=== PATIENT | male | born 1975 | race Caucasian/White ===

== ENCOUNTER → 2017-07-10 | Outpatient (CLI) | payer BC ==
[~2017-07-10] MED LIST: ASPI-621 PO; ATOR-2 PO; CLOP75TA52 PO; FURO20TA3 PO; GABA300C10 PO; METO25TA35 PO; OXYC5TAB3 PO; POTA10TA31 PO; TRAZ50TA18 PO
== END | disposition home or self-care (01) ==
LOC: RAD 16:21
PROVIDERS: ATTEND Family Medicine
DX: M54.5 Low back pain (principal)
CPT/HCPCS: 76770

== ENCOUNTER 2017-12-13 23:18 | Inpatient (IN) | payer BC, OTHER ==
[~2017-12-13] VITALS: Ht 180.3 cm; Wt 154.9 kg
[2017-12-14] MEDS ORDERED: SODIUM CHLORIDE FLUSH 10ML SYR IVF ONE (00:30)
[2017-12-14 00:36] LABS: BASOPHILS # (AUTO) 0.04 x10^3/uL (0-0.1); BASOPHILS % (AUTO) 0 % (0-1); EOSINOPHILS # (AUTO) 0.39 x10^3/uL (0-0.4); EOSINOPHILS % (AUTO) 3 % (1-7); LYMPHOCYTES # (AUTO) 1.59 x10^3/uL (1-3.4); LYMPHOCYTES % (AUTO) 12 % (22-44); MD NO; MEAN CORPUSCULAR HEMOGLOBIN 26.3 pg (27.5-34.5); MEAN CORPUSCULAR HGB CONC 32.9 g/dL (33.2-36.2); MEAN PLATELET VOLUME 8.4 fL (7.4-10.4); MONOCYTES # (AUTO) 0.91 x10^3/uL (0.2-0.8); MONOCYTES % (AUTO) 7 % (2-9); NEUTROPHILS # (AUTO) 10.17 x10^3/uL (1.8-6.8); NEUTROPHILS % (AUTO) 78 % (42-75); PLATELET COUNT 514 x10^3/uL (130-400); RED BLOOD COUNT 5.42 x10^6/uL (4.38-5.82); RED CELL DISTRIBUTION WIDTH 14.6 % (9.4-14.8)
[2017-12-14 00:37] LABS: HCT (SEDRATE) 40.6 % (39.2-51.8)
[2017-12-14 00:44] LABS: INTERNATIONAL NORMALIZED RATIO 1.01 (0.93-1.1); PROTHROMBIN TIME 10.4 Seconds (9.6-11.5)
[2017-12-14 00:52] LABS: ALBUMIN 2.3 g/dL (3.4-5.0); ANION GAP 8 mmol/L (5-15); CALCIUM 8.5 mg/dL (8.5-10.1); CHLORIDE 99 mmol/L (98-107)
[2017-12-14 00:59] LABS: ALANINE AMINOTRANSFERASE 25 U/L (12-78); ALKALINE PHOSPHATASE 108 U/L (45-117); BILIRUBIN,TOTAL 0.5 mg/dL (0.2-1.0); CREATININE 1.26 mg/dL (0.7-1.3); TOTAL PROTEIN 8.5 g/dL (6.4-8.2)
[2017-12-14] MEDS ORDERED: VANCOMYCIN PER PHARMACY MC PRN ×2 (01:00→02:00)
[2017-12-14] MEDS ORDERED: CEFTRIAXONE PMX 2GM/50ML 50 ML ONE (01:14)
[2017-12-14] MEDS ORDERED: CEFTRIAXONE PMX 2GM/50ML 50 ML IV ONE (01:20)
[2017-12-14] MEDS ORDERED: INSULIN REGULAR 100 UNITS/ML, 3ML VIAL SQ-INSULIN SCH (01:30)
[2017-12-14] MEDS ORDERED: VANCOMYCIN 2,500 MG in SODIUM CHLORIDE 0.9% 500 ML IV ONE (01:30)
[2017-12-14] MEDS ORDERED: PHARMACOKINETIC CONSULTATION MC ONE (01:30)
[2017-12-14] MEDS ORDERED: INSULIN REGULAR 100 UNITS/ML, 3ML VIAL ONE (01:39)
[2017-12-14 02:00] VITALS: BP 148/96
[2017-12-14] MEDS ORDERED: hydrALAzine 20 MG/ML, 1ML IVPush PRN (02:00)
[2017-12-14] MEDS ORDERED: POLYETHYLENE GLYCOL 17 GM PACKET PO PRN (02:00)
[2017-12-14] MEDS ORDERED: BISACODYL 10 MG SUPP PR PRN (02:00)
[2017-12-14] MEDS ORDERED: morphine SULFATE 10 MG/ML, 1ML IVPush PRN (02:00)
[2017-12-14] MEDS ORDERED: ONDANSETRON 2MG/ML, 2ML IVPush PRN (02:00)
[2017-12-14] MEDS ORDERED: OXYcodone IR 5MG TABLET PO PRN (02:00)
[2017-12-14] MEDS ORDERED: PROMETHAZINE 25 MG/ML, 1ML IM PRN (02:00)
[2017-12-14] MEDS ORDERED: ONDANSETRON ODT 4 MG PO PRN (02:00)
[2017-12-14 02:28] LABS: FREE T4 (FREE THYROXINE) 1.32 ng/dL (0.76-1.46); THYROID STIMULATING HORMONE 2.61 mIU/L (0.358-3.740)
[2017-12-14] MEDS ORDERED: PHARMACOKINETIC MONITORING MC PRN (02:30)
[2017-12-14] MEDS ORDERED: METF10003 PO (02:44)
[2017-12-14] MEDS: SODIUM CHLORIDE 0.9% 1,000 ML IV SCH (03:52)
[2017-12-14] MEDS: PIPERACILLIN/TAZO/PMX 3.375GM 50 ML IV SCH ×3 (03:53→18:48)
[2017-12-14 07:29] LABS: HEMOGLOBIN A1C 8.6 % (4.2-6.3)
[2017-12-14 07:55] VITALS: BP 152/100
[2017-12-14] MEDS: SENNA/DOCUSATE TABLET PO SCH (07:56)
[2017-12-14] MEDS ORDERED: TRAZODONE 50MG TABLET PO PRN (08:30)
[2017-12-14] MEDS ORDERED: FUROSEMIDE 20 MG TABLET PO SCH (09:00)
[2017-12-14] MEDS ORDERED: ASPIRIN 81 MG TABLET EC PO SCH (09:00)
[2017-12-14] MEDS ORDERED: POTASSIUM CHLORIDE 20 MEQ TAB.ER.PRT PO SCH (09:00)
[2017-12-14] MEDS: INSULIN LISPRO 100 UNITS/ML, PEN SQ-INSULIN SCH ×4 (09:08→21:39)
[2017-12-14] MEDS ORDERED: GADOBUTROL 15 MMOL/15 ML PFS ONE (12:17)
[2017-12-14] MEDS: GABAPENTIN 300 MG CAPSULE PO SCH ×3 (12:46→21:04)
[2017-12-14] MEDS: METOPROLOL TARTRATE 25 MG TABLET PO SCH ×2 (12:46→21:04)
[2017-12-14] MEDS: OXYcodone IR 5MG TABLET PO PRN (12:48)
[2017-12-14] MEDS ORDERED: MAGNESIUM SULFATE PMX 2GM/50ML 50 ML IV ONE (13:00)
[2017-12-14] MEDS ORDERED: FENTANYL PF 100 MCG/2ML ONE (13:45)
[2017-12-14] MEDS ORDERED: MIDAZOLAM 1 MG/ML, 2ML ONE (13:45)
[2017-12-14] MEDS ORDERED: LIDOCAINE-MPF 2% ,5ML ONE (14:24)
[2017-12-14] MEDS ORDERED: PROPOFOL 10 MG/ML, 20ML ONE (14:24)
[2017-12-14] MEDS ORDERED: ACETAMINOPHEN 650 MG/20.3 ML UDC ONE (15:23)
[2017-12-14] MEDS ORDERED: OXYcodone 5 MG/5 ML ORAL.SOL UDC ONE (15:23)
[2017-12-14] MEDS ORDERED: ACETAMINOPHEN 325 MG TABLET PO PRN (15:30)
[2017-12-14] MEDS ORDERED: FENTANYL PF 100 MCG/2ML IV PRN (15:30)
[2017-12-14] MEDS ORDERED: ALBUTEROL SULFATE 2.5 MG/3 ML NPPB PRN (15:30)
[2017-12-14] MEDS ORDERED: hydrALAzine 20 MG/ML, 1ML IV PRN (15:30)
[2017-12-14] MEDS ORDERED: LORazepam 2 MG/ML, 1ML IVPush PRN (15:30)
[2017-12-14] MEDS ORDERED: LABETALOL 5MG/ML, 20ML IV PRN (15:30)
[2017-12-14] MEDS ORDERED: HYDROmorphone 1 MG/ML, 1ML IV PRN (15:30)
[2017-12-14] MEDS ORDERED: ONDANSETRON ODT 8 MG PO PRN (15:30)
[2017-12-14] MEDS ORDERED: MORPHINE SULFATE 4 MG/ML, 1ML IVPush PRN (15:30)
[2017-12-14] MEDS ORDERED: PROMETHAZINE 25 MG/ML, 1ML IV PRN (15:30)
[2017-12-14] MEDS ORDERED: OXYcodone 5 MG/5 ML ORAL.SOL UDC PO PRN (15:30)
[2017-12-14] MEDS ORDERED: MEPERIDINE/PF 25MG/0.5ML IVPush PRN (15:30)
[2017-12-14 16:33] VITALS: BP 132/79
[2017-12-14 19:57] VITALS: BP 118/82
[2017-12-14] MEDS ORDERED: ATORVASTATIN 80 MG TABLET PO SCH (21:00)
[2017-12-14] MEDS: VANCOMYCIN 2,000 MG in SODIUM CHLORIDE 0.9% 500 ML IV SCH ×2 (21:04→22:02)
[2017-12-14 22:21] LABS: MICROSCOPIC INDICATED
[2017-12-14 22:28] LABS: CULTURE INDICATED? NO
[2017-12-15] MEDS: PIPERACILLIN/TAZO/PMX 3.375GM 50 ML IV SCH ×5 (00:44→20:14)
[2017-12-15 01:00] VITALS: BP 152/82
[2017-12-15] MEDS: SODIUM CHLORIDE 0.9% 1,000 ML IV SCH (03:18)
[2017-12-15 04:19] VITALS: BP 154/94
[2017-12-15 05:27] LABS: BASOPHILS # (AUTO) 0.06 x10^3/uL (0-0.1); BASOPHILS % (AUTO) 1 % (0-1); EOSINOPHILS # (AUTO) 0.56 x10^3/uL (0-0.4); EOSINOPHILS % (AUTO) 5 % (1-7); LYMPHOCYTES # (AUTO) 2.18 x10^3/uL (1-3.4); LYMPHOCYTES % (AUTO) 18 % (22-44); MD NO; MEAN CORPUSCULAR HEMOGLOBIN 26.2 pg (27.5-34.5); MEAN CORPUSCULAR HGB CONC 32.7 g/dL (33.2-36.2); MEAN PLATELET VOLUME 8.1 fL (7.4-10.4); MONOCYTES # (AUTO) 1.19 x10^3/uL (0.2-0.8); MONOCYTES % (AUTO) 10 % (2-9); NEUTROPHILS # (AUTO) 8.39 x10^3/uL (1.8-6.8); NEUTROPHILS % (AUTO) 68 % (42-75); PLATELET COUNT 475 x10^3/uL (130-400); RED CELL DISTRIBUTION WIDTH 14.5 % (9.4-14.8)
[2017-12-15 05:33] LABS: ALBUMIN 1.9 g/dL (3.4-5.0); ANION GAP 5 mmol/L (5-15); CALCIUM 7.6 mg/dL (8.5-10.1); CHLORIDE 102 mmol/L (98-107)
[2017-12-15 05:37] LABS: ALANINE AMINOTRANSFERASE 21 U/L (12-78); ALKALINE PHOSPHATASE 87 U/L (45-117); BILIRUBIN,TOTAL 0.4 mg/dL (0.2-1.0); CHOL/HDL RATIO 6.1; CHOLESTEROL, TOTAL 146 mg/dL (140-239); CREATININE 1.12 mg/dL (0.7-1.3); HDL CHOL % 16 % (26-37); HDL CHOLESTEROL (DIRECT) 24 mg/dL (40-60); LDL CHOLESTEROL,CALCULATED 95 mg/dL (54-169); TOTAL PROTEIN 7.4 g/dL (6.4-8.2); TRIGLYCERIDES 134 mg/dL (50-200); VLDL CHOLESTEROL 27 mg/dL (0-25)
[2017-12-15 08:06] VITALS: BP 131/85
[2017-12-15] MEDS: GABAPENTIN 300 MG CAPSULE PO SCH ×3 (08:13→20:14)
[2017-12-15] MEDS: SENNA/DOCUSATE TABLET PO SCH (08:13)
[2017-12-15] MEDS: INSULIN LISPRO 100 UNITS/ML, PEN SQ-INSULIN SCH ×4 (08:14→21:02)
[2017-12-15] MEDS: METOPROLOL TARTRATE 25 MG TABLET PO SCH ×2 (08:14→20:14)
[2017-12-15] MEDS: VANCOMYCIN 2,000 MG in SODIUM CHLORIDE 0.9% 500 ML IV SCH ×2 (10:37→22:36)
[2017-12-15] MEDS: OXYcodone IR 5MG TABLET PO PRN ×2 (11:47→21:05)
[2017-12-15] MEDS ORDERED: DIPHENHYDRAMINE 25 MG CAPSULE PO ONE (13:30)
[2017-12-15 14:32] VITALS: BP 148/72
[2017-12-15] MEDS: ENOXAPARIN 40 MG/0.4 ML SQ SCH (16:51)
[2017-12-15 20:30] VITALS: BP 146/90
[2017-12-16] MEDS: PIPERACILLIN/TAZO/PMX 3.375GM 50 ML IV SCH ×5 (02:21→21:20)
[2017-12-16] MEDS: OXYcodone IR 5MG TABLET PO PRN (02:26)
[2017-12-16 02:46] VITALS: BP 122/72
[2017-12-16 03:04] VITALS: BP 130/89
[2017-12-16 05:18] LABS: BASOPHILS # (AUTO) 0.09 x10^3/uL (0-0.1); BASOPHILS % (AUTO) 1 % (0-1); EOSINOPHILS # (AUTO) 0.73 x10^3/uL (0-0.4); EOSINOPHILS % (AUTO) 6 % (1-7); LYMPHOCYTES # (AUTO) 2.64 x10^3/uL (1-3.4); LYMPHOCYTES % (AUTO) 20 % (22-44); MD NO; MEAN CORPUSCULAR HEMOGLOBIN 26.3 pg (27.5-34.5); MEAN CORPUSCULAR VOLUME 79.8 fL (81-97); MEAN PLATELET VOLUME 7.9 fL (7.4-10.4); MONOCYTES # (AUTO) 1.16 x10^3/uL (0.2-0.8); MONOCYTES % (AUTO) 9 % (2-9); NEUTROPHILS # (AUTO) 8.67 x10^3/uL (1.8-6.8); NEUTROPHILS % (AUTO) 65 % (42-75); PLATELET COUNT 501 x10^3/uL (130-400); RED BLOOD COUNT 4.97 x10^6/uL (4.38-5.82); RED CELL DISTRIBUTION WIDTH 14.8 % (9.4-14.8)
[2017-12-16 05:22] LABS: CHLORIDE 104 mmol/L (98-107)
[2017-12-16 05:33] LABS: ANION GAP 4 mmol/L (5-15); CALCIUM 8.2 mg/dL (8.5-10.1); CREATININE 0.97 mg/dL (0.7-1.3)
[2017-12-16] MEDS: INSULIN LISPRO 100 UNITS/ML, PEN SQ-INSULIN SCH ×4 (06:05→21:21)
[2017-12-16 07:46] VITALS: BP 143/96
[2017-12-16] MEDS: METOPROLOL TARTRATE 25 MG TABLET PO SCH ×2 (07:56→21:20)
[2017-12-16] MEDS: GABAPENTIN 300 MG CAPSULE PO SCH ×3 (07:56→21:20)
[2017-12-16] MEDS: SENNA/DOCUSATE TABLET PO SCH (07:56)
[2017-12-16] MEDS: VANCOMYCIN 2,000 MG in SODIUM CHLORIDE 0.9% 500 ML IV SCH ×2 (10:36→23:04)
[2017-12-16 13:44] VITALS: BP 107/66
[2017-12-16] MEDS: ENOXAPARIN 40 MG/0.4 ML SQ SCH (16:22)
[2017-12-16 20:00] VITALS: BP 167/104
[2017-12-16 21:35] VITALS: BP 130/68
[2017-12-17] MEDS: PIPERACILLIN/TAZO/PMX 3.375GM 50 ML IV SCH ×4 (02:47→22:03)
[2017-12-17 03:04] VITALS: BP 158/90
[2017-12-17 05:26] LABS: CHLORIDE 104 mmol/L (98-107); HCT (SEDRATE) 39.7 % (39.2-51.8)
[2017-12-17 05:27] LABS: BASOPHILS # (AUTO) 0.05 x10^3/uL (0-0.1); BASOPHILS % (AUTO) 1 % (0-1); EOSINOPHILS # (AUTO) 0.77 x10^3/uL (0-0.4); EOSINOPHILS % (AUTO) 6 % (1-7); LYMPHOCYTES # (AUTO) 2.28 x10^3/uL (1-3.4); LYMPHOCYTES % (AUTO) 19 % (22-44); MD NO; MEAN CORPUSCULAR HEMOGLOBIN 26.2 pg (27.5-34.5); MEAN CORPUSCULAR HGB CONC 32.8 g/dL (33.2-36.2); MEAN CORPUSCULAR VOLUME 79.9 fL (81-97); MEAN PLATELET VOLUME 7.8 fL (7.4-10.4); MONOCYTES # (AUTO) 0.83 x10^3/uL (0.2-0.8); MONOCYTES % (AUTO) 7 % (2-9); NEUTROPHILS # (AUTO) 8.06 x10^3/uL (1.8-6.8); NEUTROPHILS % (AUTO) 67 % (42-75); PLATELET COUNT 505 x10^3/uL (130-400); RED BLOOD COUNT 4.93 x10^6/uL (4.38-5.82); RED CELL DISTRIBUTION WIDTH 14.3 % (9.4-14.8)
[2017-12-17 05:45] LABS: ALANINE AMINOTRANSFERASE 20 U/L (12-78); ALBUMIN 1.9 g/dL (3.4-5.0); ALKALINE PHOSPHATASE 82 U/L (45-117); ANION GAP 6 mmol/L (5-15); BILIRUBIN,TOTAL 0.5 mg/dL (0.2-1.0); CALCIUM 8.2 mg/dL (8.5-10.1); CREATININE 0.64 mg/dL (0.7-1.3)
[2017-12-17] MEDS: INSULIN LISPRO 100 UNITS/ML, PEN SQ-INSULIN SCH ×4 (07:00→22:04)
[2017-12-17 07:43] VITALS: BP 147/90
[2017-12-17] MEDS: SENNA/DOCUSATE TABLET PO SCH (09:00)
[2017-12-17] MEDS: GABAPENTIN 300 MG CAPSULE PO SCH ×3 (11:05→22:04)
[2017-12-17] MEDS: METOPROLOL TARTRATE 25 MG TABLET PO SCH ×2 (11:05→22:04)
[2017-12-17 12:35] LABS: CLOSTRIDIUM DIFFICILE ANTIGEN NEGATIVE; CLOSTRIDIUM DIFFICILE TOXIN NEGATIVE (Negative)
[2017-12-17] MEDS: VANCOMYCIN 2,000 MG in SODIUM CHLORIDE 0.9% 500 ML IV SCH (12:47)
[2017-12-17 14:00] VITALS: BP 152/86
[2017-12-17] MEDS: ENOXAPARIN 40 MG/0.4 ML SQ SCH (18:14)
[2017-12-17 20:12] VITALS: BP 166/99
[2017-12-18] MEDS: VANCOMYCIN 2,000 MG in SODIUM CHLORIDE 0.9% 500 ML IV SCH ×2 (01:36→13:36)
[2017-12-18 04:30] VITALS: BP 159/90
[2017-12-18] MEDS: PIPERACILLIN/TAZO/PMX 3.375GM 50 ML IV SCH ×3 (04:44→18:26)
[2017-12-18 05:17] LABS: BASOPHILS % (AUTO) 0 % (0-1); EOSINOPHILS # (AUTO) 0.61 x10^3/uL (0-0.4); EOSINOPHILS % (AUTO) 5 % (1-7); LYMPHOCYTES # (AUTO) 2.33 x10^3/uL (1-3.4); LYMPHOCYTES % (AUTO) 17 % (22-44); MD NO; MEAN CORPUSCULAR HGB CONC 32.8 g/dL (33.2-36.2); MEAN CORPUSCULAR VOLUME 79.3 fL (81-97); MEAN PLATELET VOLUME 7.7 fL (7.4-10.4); MONOCYTES # (AUTO) 0.82 x10^3/uL (0.2-0.8); MONOCYTES % (AUTO) 6 % (2-9); NEUTROPHILS # (AUTO) 9.99 x10^3/uL (1.8-6.8); NEUTROPHILS % (AUTO) 73 % (42-75); PLATELET COUNT 556 x10^3/uL (130-400); RED BLOOD COUNT 5.43 x10^6/uL (4.38-5.82); RED CELL DISTRIBUTION WIDTH 14.6 % (9.4-14.8)
[2017-12-18 05:33] LABS: CHLORIDE 103 mmol/L (98-107)
[2017-12-18 05:40] LABS: ANION GAP 7 mmol/L (5-15); CALCIUM 8.4 mg/dL (8.5-10.1); CREATININE 0.87 mg/dL (0.7-1.3)
[2017-12-18] MEDS: ACETAMINOPHEN 325 MG TABLET PO PRN (06:48)
[2017-12-18 07:13] VITALS: BP 175/74
[2017-12-18] MEDS: METOPROLOL TARTRATE 25 MG TABLET PO SCH ×2 (07:55→23:04)
[2017-12-18] MEDS: INSULIN LISPRO 100 UNITS/ML, PEN SQ-INSULIN SCH ×4 (07:56→23:09)
[2017-12-18] MEDS: SENNA/DOCUSATE TABLET PO SCH (10:36)
[2017-12-18] MEDS: GABAPENTIN 300 MG CAPSULE PO SCH ×3 (10:36→23:03)
[2017-12-18 12:39] VITALS: BP 146/93
[2017-12-18] MEDS: ENOXAPARIN 40 MG/0.4 ML SQ SCH (16:31)
[2017-12-18 19:14] VITALS: BP 139/84
[2017-12-19] MEDS: PIPERACILLIN/TAZO/PMX 3.375GM 50 ML IV SCH ×4 (00:31→17:36)
[2017-12-19] MEDS: VANCOMYCIN 2,000 MG in SODIUM CHLORIDE 0.9% 500 ML IV SCH ×2 (01:53→13:06)
[2017-12-19 02:17] VITALS: BP 135/81
[2017-12-19 05:17] LABS: BASOPHILS # (AUTO) 0.07 x10^3/uL (0-0.1); BASOPHILS % (AUTO) 1 % (0-1); EOSINOPHILS # (AUTO) 0.46 x10^3/uL (0-0.4); EOSINOPHILS % (AUTO) 3 % (1-7); LYMPHOCYTES # (AUTO) 2.34 x10^3/uL (1-3.4); LYMPHOCYTES % (AUTO) 17 % (22-44); MD NO; MEAN CORPUSCULAR HEMOGLOBIN 25.9 pg (27.5-34.5); MEAN CORPUSCULAR HGB CONC 32.5 g/dL (33.2-36.2); MEAN CORPUSCULAR VOLUME 79.5 fL (81-97); MEAN PLATELET VOLUME 7.6 fL (7.4-10.4); MONOCYTES # (AUTO) 0.84 x10^3/uL (0.2-0.8); MONOCYTES % (AUTO) 6 % (2-9); NEUTROPHILS # (AUTO) 10.35 x10^3/uL (1.8-6.8); NEUTROPHILS % (AUTO) 74 % (42-75); PLATELET COUNT 518 x10^3/uL (130-400); RED CELL DISTRIBUTION WIDTH 14.5 % (9.4-14.8)
[2017-12-19 05:24] LABS: ANION GAP 9 mmol/L (5-15); CALCIUM 8.4 mg/dL (8.5-10.1); CHLORIDE 104 mmol/L (98-107)
[2017-12-19 07:26] VITALS: BP 180/118
[2017-12-19] MEDS: METOPROLOL TARTRATE 25 MG TABLET PO SCH ×2 (07:42→20:21)
[2017-12-19] MEDS: GABAPENTIN 300 MG CAPSULE PO SCH ×3 (07:42→20:21)
[2017-12-19] MEDS: INSULIN LISPRO 100 UNITS/ML, PEN SQ-INSULIN SCH ×4 (07:43→20:36)
[2017-12-19] MEDS: SENNA/DOCUSATE TABLET PO SCH (07:43)
[2017-12-19 09:16] VITALS: BP 147/82
[2017-12-19] MEDS: OXYcodone IR 5MG TABLET PO PRN ×2 (11:36→20:21)
[2017-12-19 12:44] VITALS: BP 154/95
[2017-12-19] MEDS: ENOXAPARIN 40 MG/0.4 ML SQ SCH (16:14)
[2017-12-19 20:20] VITALS: BP 143/89
[2017-12-20] MEDS: PIPERACILLIN/TAZO/PMX 3.375GM 50 ML IV SCH ×5 (00:16→23:45)
[2017-12-20 04:31] VITALS: BP 135/84
[2017-12-20 05:59] LABS: BASOPHILS # (AUTO) 0.05 x10^3/uL (0-0.1); BASOPHILS % (AUTO) 0 % (0-1); EOSINOPHILS # (AUTO) 0.56 x10^3/uL (0-0.4); EOSINOPHILS % (AUTO) 4 % (1-7); LYMPHOCYTES # (AUTO) 2.88 x10^3/uL (1-3.4); LYMPHOCYTES % (AUTO) 20 % (22-44); MD NO; MEAN CORPUSCULAR HEMOGLOBIN 26.4 pg (27.5-34.5); MEAN CORPUSCULAR HGB CONC 33.1 g/dL (33.2-36.2); MEAN CORPUSCULAR VOLUME 79.7 fL (81-97); MEAN PLATELET VOLUME 7.6 fL (7.4-10.4); MONOCYTES # (AUTO) 0.82 x10^3/uL (0.2-0.8); MONOCYTES % (AUTO) 6 % (2-9); NEUTROPHILS # (AUTO) 10.21 x10^3/uL (1.8-6.8); NEUTROPHILS % (AUTO) 70 % (42-75); PLATELET COUNT 546 x10^3/uL (130-400); RED BLOOD COUNT 5.27 x10^6/uL (4.38-5.82); RED CELL DISTRIBUTION WIDTH 14.4 % (9.4-14.8)
[2017-12-20 06:10] LABS: ANION GAP 7 mmol/L (5-15); CALCIUM 8.2 mg/dL (8.5-10.1); CHLORIDE 103 mmol/L (98-107)
[2017-12-20 06:11] LABS: CREATININE 1.17 mg/dL (0.7-1.3)
[2017-12-20 06:50] VITALS: BP 105/68
[2017-12-20] MEDS: GABAPENTIN 300 MG CAPSULE PO SCH ×3 (07:30→21:06)
[2017-12-20] MEDS: METOPROLOL TARTRATE 25 MG TABLET PO SCH ×2 (07:30→21:06)
[2017-12-20] MEDS: SENNA/DOCUSATE TABLET PO SCH (07:30)
[2017-12-20] MEDS: INSULIN LISPRO 100 UNITS/ML, PEN SQ-INSULIN SCH ×4 (07:30→21:13)
[2017-12-20 13:36] VITALS: BP 144/83
[2017-12-20] MEDS: ENOXAPARIN 40 MG/0.4 ML SQ SCH (16:20)
[2017-12-20] MEDS: MUPIROCIN OINT 2%, 22GM TP SCH (17:29)
[2017-12-20 19:44] VITALS: BP 152/99
[2017-12-21 02:25] VITALS: BP 134/85
[2017-12-21] MEDS: MUPIROCIN OINT 2%, 22GM TP SCH ×2 (06:00→17:53)
[2017-12-21] MEDS: PIPERACILLIN/TAZO/PMX 3.375GM 50 ML IV SCH ×4 (06:28→23:53)
[2017-12-21] MEDS: INSULIN LISPRO 100 UNITS/ML, PEN SQ-INSULIN SCH ×4 (06:31→21:02)
[2017-12-21 08:23] VITALS: BP 128/76
[2017-12-21] MEDS: GABAPENTIN 300 MG CAPSULE PO SCH ×3 (08:29→20:56)
[2017-12-21] MEDS: METOPROLOL TARTRATE 25 MG TABLET PO SCH ×2 (08:29→20:57)
[2017-12-21] MEDS: SENNA/DOCUSATE TABLET PO SCH (08:32)
[2017-12-21] MEDS: INSULIN GLARGINE 100 UNITS/ML, PEN SQ-INSULIN SCH ×2 (09:35→21:02)
[2017-12-21] MEDS ORDERED: OXYcodone IR 5MG TABLET PO PRN (13:30)
[2017-12-21 13:54] VITALS: BP 147/83
[2017-12-21] MEDS: ENOXAPARIN 40 MG/0.4 ML SQ SCH (16:28)
[2017-12-21 20:30] VITALS: BP 120/93
[2017-12-22 01:37] VITALS: BP 130/87
[2017-12-22] MEDS: MUPIROCIN OINT 2%, 22GM TP SCH ×2 (06:00→17:48)
[2017-12-22] MEDS: PIPERACILLIN/TAZO/PMX 3.375GM 50 ML IV SCH ×4 (06:00→23:45)
[2017-12-22] MEDS: METOPROLOL TARTRATE 25 MG TABLET PO SCH ×2 (07:34→20:29)
[2017-12-22] MEDS: GABAPENTIN 300 MG CAPSULE PO SCH ×3 (07:35→20:29)
[2017-12-22] MEDS: SENNA/DOCUSATE TABLET PO SCH (07:35)
[2017-12-22] MEDS: INSULIN LISPRO 100 UNITS/ML, PEN SQ-INSULIN SCH ×4 (07:36→20:34)
[2017-12-22] MEDS: INSULIN GLARGINE 100 UNITS/ML, PEN SQ-INSULIN SCH ×2 (07:36→20:34)
[2017-12-22 07:39] VITALS: BP 151/91
[2017-12-22 13:43] VITALS: BP 147/90
[2017-12-22] MEDS: ENOXAPARIN 40 MG/0.4 ML SQ SCH (16:53)
[2017-12-22 19:29] VITALS: BP 150/89
[2017-12-23 02:11] VITALS: BP 142/89
[2017-12-23] MEDS: MUPIROCIN OINT 2%, 22GM TP SCH ×2 (05:59→17:44)
[2017-12-23] MEDS: PIPERACILLIN/TAZO/PMX 3.375GM 50 ML IV SCH ×4 (05:59→23:51)
[2017-12-23] MEDS: INSULIN LISPRO 100 UNITS/ML, PEN SQ-INSULIN SCH ×4 (07:37→21:40)
[2017-12-23 07:55] VITALS: BP 138/81
[2017-12-23] MEDS: SENNA/DOCUSATE TABLET PO SCH (09:04)
[2017-12-23] MEDS: METOPROLOL TARTRATE 25 MG TABLET PO SCH ×2 (09:04→21:38)
[2017-12-23] MEDS: INSULIN GLARGINE 100 UNITS/ML, PEN SQ-INSULIN SCH (09:04)
[2017-12-23] MEDS: GABAPENTIN 300 MG CAPSULE PO SCH ×3 (09:04→21:38)
[2017-12-23 12:40] VITALS: BP 130/84
[2017-12-23] MEDS: ENOXAPARIN 40 MG/0.4 ML SQ SCH (16:49)
[2017-12-23 20:30] VITALS: BP 160/92
[2017-12-23] MEDS ORDERED: INSULIN GLARGINE 100 UNITS/ML, PEN SQ-INSULIN SCH (21:00)
[2017-12-24 01:25] VITALS: BP 142/88
[2017-12-24 05:07] LABS: BASOPHILS # (AUTO) 0.06 x10^3/uL (0-0.1); BASOPHILS % (AUTO) 0 % (0-1); EOSINOPHILS # (AUTO) 0.57 x10^3/uL (0-0.4); EOSINOPHILS % (AUTO) 4 % (1-7); LYMPHOCYTES # (AUTO) 3.44 x10^3/uL (1-3.4); LYMPHOCYTES % (AUTO) 23 % (22-44); MD NO; MEAN CORPUSCULAR HEMOGLOBIN 26.1 pg (27.5-34.5); MEAN CORPUSCULAR VOLUME 79.1 fL (81-97); MEAN PLATELET VOLUME 7.6 fL (7.4-10.4); MONOCYTES # (AUTO) 1.17 x10^3/uL (0.2-0.8); MONOCYTES % (AUTO) 8 % (2-9); NEUTROPHILS # (AUTO) 9.47 x10^3/uL (1.8-6.8); NEUTROPHILS % (AUTO) 64 % (42-75); PLATELET COUNT 465 x10^3/uL (130-400); RED BLOOD COUNT 5.55 x10^6/uL (4.38-5.82); RED CELL DISTRIBUTION WIDTH 15.1 % (9.4-14.8)
[2017-12-24] MEDS: PIPERACILLIN/TAZO/PMX 3.375GM 50 ML IV SCH ×2 (05:30→12:57)
[2017-12-24] MEDS: MUPIROCIN OINT 2%, 22GM TP SCH ×2 (05:30→16:36)
[2017-12-24] MEDS: ACETAMINOPHEN 325 MG TABLET PO PRN (06:12)
[2017-12-24 07:05] VITALS: BP 112/80
[2017-12-24] MEDS: INSULIN LISPRO 100 UNITS/ML, PEN SQ-INSULIN SCH ×4 (07:37→21:33)
[2017-12-24] MEDS: METOPROLOL TARTRATE 25 MG TABLET PO SCH ×2 (08:46→21:32)
[2017-12-24] MEDS: GABAPENTIN 300 MG CAPSULE PO SCH ×3 (08:46→21:32)
[2017-12-24] MEDS: SENNA/DOCUSATE TABLET PO SCH (08:46)
[2017-12-24] MEDS: INSULIN GLARGINE 100 UNITS/ML, PEN SQ-INSULIN SCH ×2 (08:47→21:32)
[2017-12-24 12:42] VITALS: BP 122/85
[2017-12-24] MEDS: LINEZOLID 600 MG TABLET PO SCH (16:21)
[2017-12-24] MEDS: ENOXAPARIN 40 MG/0.4 ML SQ SCH (16:36)
[2017-12-24 19:54] VITALS: BP 143/95
[2017-12-25 02:05] VITALS: BP 144/84
[2017-12-25] MEDS: LINEZOLID 600 MG TABLET PO SCH ×2 (03:58→16:08)
[2017-12-25] MEDS: MUPIROCIN OINT 2%, 22GM TP SCH ×2 (06:25→16:09)
[2017-12-25 06:50] VITALS: BP 126/88
[2017-12-25] MEDS: INSULIN LISPRO 100 UNITS/ML, PEN SQ-INSULIN SCH ×3 (07:55→16:14)
[2017-12-25] MEDS: INSULIN GLARGINE 100 UNITS/ML, PEN SQ-INSULIN SCH (09:05)
[2017-12-25] MEDS: METOPROLOL TARTRATE 25 MG TABLET PO SCH (09:05)
[2017-12-25] MEDS: GABAPENTIN 300 MG CAPSULE PO SCH ×2 (09:05→16:08)
[2017-12-25] MEDS: SENNA/DOCUSATE TABLET PO SCH (09:05)
[2017-12-25 13:25] VITALS: BP 116/57
[2017-12-25] MEDS ORDERED: METO25TA35 PO (15:22)
[2017-12-25] MEDS ORDERED: GABA300C10 PO (15:22)
[2017-12-25] MEDS ORDERED: ONDA4TAB13 PO (15:22)
[2017-12-25] MEDS ORDERED: LINE600T7 PO (15:22)
[2017-12-25] MEDS ORDERED: ACET325T14 PO (15:22)
[2017-12-25] MEDS ORDERED: HUM100VI6 SC (15:22)
[2017-12-25] MEDS ORDERED: MUPI22OI2 TP (15:22)
[2017-12-25] MEDS ORDERED: ASPI-621 PO (15:25)
[2017-12-25] MEDS ORDERED: CLOP75TA52 PO (15:25)
[2017-12-25] MEDS ORDERED: ATOR-2 PO (15:25)
[2017-12-25] MEDS: ENOXAPARIN 40 MG/0.4 ML SQ SCH (16:08)
== END 2017-12-25 18:20 | disposition home or self-care (01) | DRG 617 ==
LOC: ED 23:59 → EDIP 12-14 01:46 → 4NOR 12-14 01:52
PROVIDERS: ADMIT Internal Medicine; ATTEND Internal Medicine
PROC: 0Y6P0Z0 Detachment at Right 1st Toe, Complete, Open Approach (ICD-10-PCS; principal; 2017-12-14 13:30)
PROC: 5A09357 Assistance with Respiratory Ventilation, Less than 24 Consecutive Hours, Continuous Positive Airway Pressure (ICD-10-PCS; 2017-12-19)
PROC: 5A09357 Assistance with Respiratory Ventilation, Less than 24 Consecutive Hours, Continuous Positive Airway Pressure (ICD-10-PCS; 2017-12-20)
PROC: 5A09357 Assistance with Respiratory Ventilation, Less than 24 Consecutive Hours, Continuous Positive Airway Pressure (ICD-10-PCS; 2017-12-21)
PROC: 5A09357 Assistance with Respiratory Ventilation, Less than 24 Consecutive Hours, Continuous Positive Airway Pressure (ICD-10-PCS; 2017-12-22)
PROC: 5A09357 Assistance with Respiratory Ventilation, Less than 24 Consecutive Hours, Continuous Positive Airway Pressure (ICD-10-PCS; 2017-12-23)
PROC: 5A09357 Assistance with Respiratory Ventilation, Less than 24 Consecutive Hours, Continuous Positive Airway Pressure (ICD-10-PCS; 2017-12-24)
DX: E11.69 Type 2 diabetes mellitus with other specified complication (principal); E44.0 Moderate protein-calorie malnutrition; Z68.42 Body mass index [BMI] 45.0-49.9, adult; E87.1 Hypo-osmolality and hyponatremia; L03.115 Cellulitis of right lower limb; M86.171 Other acute osteomyelitis, right ankle and foot; E11.40 Type 2 diabetes mellitus with diabetic neuropathy, unspecified; E11.621 Type 2 diabetes mellitus with foot ulcer; E11.65 Type 2 diabetes mellitus with hyperglycemia; E66.01 Morbid (severe) obesity due to excess calories; F15.10 Other stimulant abuse, uncomplicated; G47.33 Obstructive sleep apnea (adult) (pediatric); G60.8 Other hereditary and idiopathic neuropathies; I11.9 Hypertensive heart disease without heart failure; I25.10 Atherosclerotic heart disease of native coronary artery without angina pectoris; L97.519 Non-pressure chronic ulcer of other part of right foot with unspecified severity; M60.9 Myositis, unspecified; M79.89 Other specified soft tissue disorders; D72.829 Elevated white blood cell count, unspecified; Z95.1 Presence of aortocoronary bypass graft; I25.2 Old myocardial infarction; Z83.3 Family history of diabetes mellitus
CPT/HCPCS: 36415; 71045; 80048; 80053; 80061; 80069; 80202; 81001; 82962; 83036; 83605; 83735; 84145; 84439; 84443; 85025; 85610; 85651; 85730; 86140; 87040; 87070; 87075; 87077; 87147; 87181; 87186; 87205; 87324; 88305; 88311; 93306; 96365; 96368; 96372; A9585; J0696; J1650; J2250; J2543; J2704; J3010; J3370; J3490; J1815; J3475; J7030; J7040; Q0163

== ENCOUNTER → 2017-12-26 | Outpatient (CLI) | payer BC, OTHER ==
[~2017-12-26] MED LIST changes: +ACET325T14 PO; +HUM100VI6 SC; +LINE600T7 PO; +METF10003 PO; +MUPI22OI2 TP; +ONDA4TAB13 PO; +TRAZ-136 PO; -TRAZ50TA18 PO
== END | disposition home or self-care (01) ==
LOC: WOUND 12:49
PROVIDERS: ATTEND Internal Medicine
DX: E11.621 Type 2 diabetes mellitus with foot ulcer (principal); L97.513 Non-pressure chronic ulcer of other part of right foot with necrosis of muscle; E11.40 Type 2 diabetes mellitus with diabetic neuropathy, unspecified; E11.65 Type 2 diabetes mellitus with hyperglycemia; I25.10 Atherosclerotic heart disease of native coronary artery without angina pectoris; E11.69 Type 2 diabetes mellitus with other specified complication; M86.071 Acute hematogenous osteomyelitis, right ankle and foot; E78.5 Hyperlipidemia, unspecified; E66.2 Morbid (severe) obesity with alveolar hypoventilation; G47.30 Sleep apnea, unspecified; Z89.421 Acquired absence of other right toe(s)
CPT/HCPCS: 11042; 99215

== ENCOUNTER 2018-03-29 17:25 | Emergency (ER) | payer MEDICAID ==
[~2018-03-29] VITALS: Ht 180.3 cm; Wt 175.2 kg
[~2018-03-29 17:25] MED LIST changes: +LINE600T33 PO; -LINE600T7 PO; -METF10003 PO; +METF10007 PO
[2018-03-29 17:28] VITALS: BP 147/112
[2018-03-29 17:53] LABS: BASOPHILS # (AUTO) 0.03 x10^3/uL (0-0.1); BASOPHILS % (AUTO) 0 % (0-1); EOSINOPHILS % (AUTO) 3 % (1-7); LYMPHOCYTES # (AUTO) 2.39 x10^3/uL (1-3.4); LYMPHOCYTES % (AUTO) 19 % (22-44); MD NO; MEAN CORPUSCULAR HEMOGLOBIN 26.9 pg (27.5-34.5); MEAN CORPUSCULAR HGB CONC 33.9 g/dL (33.2-36.2); MEAN CORPUSCULAR VOLUME 79.4 fL (81-97); MEAN PLATELET VOLUME 8.3 fL (7.4-10.4); MONOCYTES # (AUTO) 0.92 x10^3/uL (0.2-0.8); MONOCYTES % (AUTO) 7 % (2-9); NEUTROPHILS # (AUTO) 9.15 x10^3/uL (1.8-6.8); NEUTROPHILS % (AUTO) 71 % (42-75); PLATELET COUNT 338 x10^3/uL (130-400); RED CELL DISTRIBUTION WIDTH 16.9 % (9.4-14.8)
[2018-03-29 17:58] LABS: ALANINE AMINOTRANSFERASE 27 U/L (12-78); ALBUMIN 3.1 g/dL (3.4-5.0); ANION GAP 9 mmol/L (5-15); CHLORIDE 101 mmol/L (98-107)
[2018-03-29 18:00] LABS: ALKALINE PHOSPHATASE 122 U/L (45-117); BILIRUBIN,TOTAL 0.4 mg/dL (0.2-1.0); TOTAL PROTEIN 8.2 g/dL (6.4-8.2)
[2018-03-29] MEDS ORDERED: BACITRACIN OINT 500U/GM, 15 GM TP STA (19:19)
== END 2018-03-29 20:23 | disposition home or self-care (01) ==
LOC: ED 20:11
DX: E11.622 Type 2 diabetes mellitus with other skin ulcer (principal); E11.65 Type 2 diabetes mellitus with hyperglycemia; I10 Essential (primary) hypertension; I25.2 Old myocardial infarction
CPT/HCPCS: 36415; 80053; 85025; 99285

== ENCOUNTER 2018-11-16 23:12 | Inpatient (IN) | payer OTHER ==
[~2018-11-16] VITALS: Ht 180.3 cm; Wt 155.7 kg
[~2018-11-16 23:12] MED LIST changes: -ASPI-621 PO; +ASPI81TA45 PO; -TRAZ-136 PO; +TRAZ50TA66 PO
[2018-11-16] MEDS ORDERED: SODIUM CHLORIDE 0.9% 1,000ML IVBOLUS ONE (23:30)
[2018-11-16] MEDS ORDERED: ONDANSETRON 2MG/ML, 2ML IVPush ONE (23:30)
[2018-11-16] MEDS ORDERED: MORPHINE SULFATE 4 MG/ML, 1ML IVPush PRN (23:30)
--- NOTE | 2018-11-16 23:33 | NUR ---
bib remsa with c/o n/v, llq abd pain and dizziness that started this morning.pt with h/x dm, fsbs-347, r/a 88% emt administerred 4l o2-spo2-93%. b/p-132/74, hr-89, ekg showed sr with st and pr depression. pt received iv 4 mg zofran and 300cc normal saline banquet captain. monitors applied, siderails up x2, callllight within reach
[2018-11-16] MEDS ORDERED: MORPHINE SULFATE 4 MG/ML, 1ML ONE (23:35)
[2018-11-16] MEDS ORDERED: ONDANSETRON 2MG/ML, 2ML ONE (23:35)
[2018-11-16] MEDS ORDERED: GLIP5TAB10 PO (23:47)
[2018-11-16 23:59] LABS: PH, VENOUS 7.386 pH (7.320-7.420)
[2018-11-17] VITALS (9 sets, daily range): BP systolic 100–158; BP diastolic 63–111
[2018-11-17 00:03] LABS: BASOPHILS # (AUTO) 0.04 x10^3/uL (0-0.1); BASOPHILS % (AUTO) 0 % (0-1); EOSINOPHILS # (AUTO) 0.03 x10^3/uL (0-0.4); EOSINOPHILS % (AUTO) 0 % (1-7); LYMPHOCYTES # (AUTO) 1.21 x10^3/uL (1-3.4); LYMPHOCYTES % (AUTO) 10 % (22-44); MD NO; MEAN CORPUSCULAR HEMOGLOBIN 25.8 pg (27.5-34.5); MEAN CORPUSCULAR HGB CONC 31.9 g/dL (33.2-36.2); MEAN PLATELET VOLUME 7.3 fL (7.4-10.4); MONOCYTES # (AUTO) 0.67 x10^3/uL (0.2-0.8); MONOCYTES % (AUTO) 5 % (2-9); NEUTROPHILS # (AUTO) 10.55 x10^3/uL (1.8-6.8); NEUTROPHILS % (AUTO) 84 % (42-75); PLATELET COUNT 331 x10^3/uL (130-400); RED BLOOD COUNT 5.77 x10^6/uL (4.38-5.82); RED CELL DISTRIBUTION WIDTH 15.7 % (9.4-14.8)
--- NOTE | 2018-11-17 00:06 | NUR ---
PT RESTING WITH EYES CLOSED, DENIES NEEDS, NADN, MONITORS IN PLACE, CALL LIGHT WITHIN REACH. AWAITING LAB RESULTS AND CT
[2018-11-17 00:12] LABS: ALANINE AMINOTRANSFERASE 16 U/L (12-78); ALBUMIN 2.2 g/dL (3.4-5.0); ANION GAP 7 mmol/L (5-15); CHLORIDE 106 mmol/L (98-107); CREATININE 0.91 mg/dL (0.7-1.3)
[2018-11-17 00:17] LABS: ALKALINE PHOSPHATASE 99 U/L (45-117); BILIRUBIN,TOTAL 0.2 mg/dL (0.2-1.0); TROPONIN I < 0.015 ng/mL (0.000-0.045)
--- NOTE | 2018-11-17 00:20 | NUR ---
PT TO CT
[2018-11-17 00:26] LABS: ACETONE, SERUM Small (20mg/dL) mg/dL (Negative)
[2018-11-17 01:02] LABS: INTERNATIONAL NORMALIZED RATIO 0.97 (0.93-1.1); PROTHROMBIN TIME 10.2 Seconds (9.6-11.5)
--- NOTE | 2018-11-17 01:02 | NUR ---
BREAK RN: PT BACK FROM CT. PT RESTING WITH NO NEEDS AT THIS TIME. CALL LIGHT IN REACH
--- NOTE | 2018-11-17 01:17 | NUR ---
PT RESTING ON GURNEY, DENIES NEEDS, MONITORS IN PLACE, CALL LIGHT WITHIN REACH. CHART UP FOR RECHECK
[2018-11-17] MEDS ORDERED: FUROSEMIDE 20 MG/2 ML ONE (01:20)
[2018-11-17] MEDS ORDERED: FUROSEMIDE 20 MG/2 ML IV ONE (01:30)
[2018-11-17] MEDS ORDERED: ONDANSETRON 2MG/ML, 2ML IVPush PRN (02:00)
[2018-11-17] MEDS ORDERED: INSULIN REGULAR 100 UNITS/ML, 3ML VIAL SQ-INSULIN ONE (02:00)
[2018-11-17] MEDS ORDERED: ASPIRIN 325 MG TABLET EC PO ONE (02:30)
[2018-11-17 04:53] LABS: TROPONIN I < 0.015 ng/mL (0.000-0.045)
[2018-11-17 05:05] LABS: HEMOGLOBIN A1C 12.7 % (4.2-6.3)
[2018-11-17] MEDS ORDERED: OMNIPAQUE 350 MG/ML, 100ML BOTTLE ONE (05:58)
[2018-11-17] MEDS: GABAPENTIN 300 MG CAPSULE PO SCH ×3 (09:33→22:17)
[2018-11-17] MEDS: INSULIN GLARGINE 100 UNITS/ML, PEN SQ-INSULIN SCH ×2 (09:34→22:20)
[2018-11-17] MEDS: INSULIN LISPRO 100 UNITS/ML, PEN SQ-INSULIN SCH ×4 (09:34→22:19)
[2018-11-17] MEDS: MECLIZINE 25 MG TABLET PO PRN ×2 (11:17→22:18)
[2018-11-17] MEDS: ENOXAPARIN 40 MG/0.4 ML SQ SCH (11:42)
[2018-11-17 12:08] LABS: TROPONIN I < 0.015 ng/mL (0.000-0.045)
[2018-11-17 12:39] LABS: AMPHETAMINE SCREEN, URINE Negative (Negative); BARBITURATE SCREEN, URINE Negative (Negative); BENZODIAZEPINE SCREEN, URINE Negative (Negative); CANNABINOID SCREEN, URINE Negative (Negative); COCAINE SCREEN, URINE Negative (Negative); METHADONE SCREEN, URINE Negative (Negative); OPIATE SCREEN, URINE Positive (Negative)
[2018-11-17] MEDS ORDERED: GLIP10TA13 PO (15:45)
[2018-11-17] MEDS ORDERED: SULF1TAB24 PO (16:20)
[2018-11-17] MEDS: SULFAMETH./TRIMETHOPRIM DS 800MG/160MG TABLET PO SCH ×2 (16:36→21:00)
[2018-11-17] MEDS: METOPROLOL TARTRATE 25 MG TABLET PO SCH (17:09)
[2018-11-17] MEDS ORDERED: ATORVASTATIN 40 MG TABLET PO SCH (21:00)
[2018-11-18] VITALS (15 sets, daily range): BP systolic 76–138; BP diastolic 52–87
[2018-11-18 05:23] LABS: BASOPHILS # (AUTO) 0.04 x10^3/uL (0-0.1); BASOPHILS % (AUTO) 0 % (0-1); EOSINOPHILS # (AUTO) 0.69 x10^3/uL (0-0.4); EOSINOPHILS % (AUTO) 5 % (1-7); LYMPHOCYTES # (AUTO) 3.28 x10^3/uL (1-3.4); LYMPHOCYTES % (AUTO) 25 % (22-44); MD NO; MEAN CORPUSCULAR HEMOGLOBIN 26.6 pg (27.5-34.5); MEAN CORPUSCULAR HGB CONC 32.6 g/dL (33.2-36.2); MEAN CORPUSCULAR VOLUME 81.7 fL (81-97); MEAN PLATELET VOLUME 7.5 fL (7.4-10.4); MONOCYTES # (AUTO) 0.91 x10^3/uL (0.2-0.8); MONOCYTES % (AUTO) 7 % (2-9); NEUTROPHILS # (AUTO) 8.42 x10^3/uL (1.8-6.8); NEUTROPHILS % (AUTO) 63 % (42-75); PLATELET COUNT 325 x10^3/uL (130-400); RED BLOOD COUNT 5.58 x10^6/uL (4.38-5.82); RED CELL DISTRIBUTION WIDTH 15.8 % (9.4-14.8)
[2018-11-18 05:33] LABS: CHLORIDE 101 mmol/L (98-107)
[2018-11-18 05:43] LABS: ANION GAP 5 mmol/L (5-15); CALCIUM 8.2 mg/dL (8.5-10.1); CREATININE 0.88 mg/dL (0.7-1.3)
[2018-11-18] MEDS: METOPROLOL TARTRATE 25 MG TABLET PO SCH ×2 (06:12→18:06)
[2018-11-18] MEDS: INSULIN GLARGINE 100 UNITS/ML, PEN SQ-INSULIN SCH ×2 (08:26→22:03)
[2018-11-18] MEDS: INSULIN LISPRO 100 UNITS/ML, PEN SQ-INSULIN SCH ×4 (08:26→22:03)
[2018-11-18] MEDS: ASPIRIN 81 MG TABLET CHEW PO SCH (08:27)
[2018-11-18] MEDS: SULFAMETH./TRIMETHOPRIM DS 800MG/160MG TABLET PO SCH (08:27)
[2018-11-18] MEDS: GABAPENTIN 300 MG CAPSULE PO SCH ×3 (08:27→22:02)
[2018-11-18 09:59] LABS: HCT (SEDRATE) 45.6 % (39.2-51.8)
[2018-11-18 10:29] LABS: MICROSCOPIC INDICATED
[2018-11-18 11:17] LABS: CULTURE INDICATED? YES
[2018-11-18] MEDS: ENOXAPARIN 40 MG/0.4 ML SQ SCH (11:55)
[2018-11-18] MEDS ORDERED: VANCOMYCIN 1,000 MG in SODIUM CHLORIDE 0.9% 250 ML IVPB SCH (15:18)
[2018-11-18] MEDS ORDERED: PHARMACOKINETIC MONITORING MC PRN (16:00)
[2018-11-18] MEDS ORDERED: PHARMACOKINETIC CONSULTATION MC ONE (16:00)
[2018-11-18] MEDS ORDERED: VANCOMYCIN PER PHARMACY MC PRN (16:00)
[2018-11-18] MEDS ORDERED: GADOBUTROL 15 MMOL/15 ML PFS ONE (16:11)
[2018-11-18] MEDS: AMPICILLIN/SULBACTAM 1,500 MG in SODIUM CHLORIDE 0.9% 50 ML IV SCH ×2 (17:05→23:21)
[2018-11-18] MEDS: VANCOMYCIN 2,200 MG in SODIUM CHLORIDE 0.9% 500 ML IV SCH (18:01)
[2018-11-18] MEDS ORDERED: OMNIPAQUE 350 MG/ML, 100ML BOTTLE ONE (21:25)
[2018-11-18] MEDS: ATORVASTATIN 40 MG TABLET PO SCH (22:02)
[2018-11-18] MEDS: CLOPIDOGREL 75 MG TABLET PO SCH (22:43)
[2018-11-19] VITALS (10 sets, daily range): BP systolic 106–146; BP diastolic 67–85
[2018-11-19] MEDS: AMPICILLIN/SULBACTAM 1,500 MG in SODIUM CHLORIDE 0.9% 50 ML IV SCH ×3 (05:20→17:28)
[2018-11-19 05:34] LABS: BASOPHILS # (AUTO) 0.04 x10^3/uL (0-0.1); BASOPHILS % (AUTO) 0 % (0-1); EOSINOPHILS # (AUTO) 0.48 x10^3/uL (0-0.4); EOSINOPHILS % (AUTO) 4 % (1-7); LYMPHOCYTES % (AUTO) 20 % (22-44); MD NO; MEAN CORPUSCULAR HEMOGLOBIN 26.4 pg (27.5-34.5); MEAN CORPUSCULAR HGB CONC 32.4 g/dL (33.2-36.2); MEAN CORPUSCULAR VOLUME 81.3 fL (81-97); MEAN PLATELET VOLUME 7.5 fL (7.4-10.4); MONOCYTES # (AUTO) 0.73 x10^3/uL (0.2-0.8); MONOCYTES % (AUTO) 7 % (2-9); NEUTROPHILS # (AUTO) 7.74 x10^3/uL (1.8-6.8); NEUTROPHILS % (AUTO) 69 % (42-75); PLATELET COUNT 316 x10^3/uL (130-400); RED BLOOD COUNT 5.63 x10^6/uL (4.38-5.82); RED CELL DISTRIBUTION WIDTH 15.1 % (9.4-14.8)
[2018-11-19 05:49] LABS: ANION GAP 4 mmol/L (5-15); CALCIUM 8.4 mg/dL (8.5-10.1); CHLORIDE 103 mmol/L (98-107); CHOLESTEROL, TOTAL 228 mg/dL (140-239); TRIGLYCERIDES 252 mg/dL (50-200); VLDL CHOLESTEROL 50 mg/dL (0-25)
[2018-11-19 05:52] LABS: CHOL/HDL RATIO 6.7; HDL CHOL % 15 % (26-37); HDL CHOLESTEROL (DIRECT) 34 mg/dL (40-60); LDL CHOLESTEROL,CALCULATED 144 mg/dL (54-169); LDL/HDL RATIO 4.2 (0.5-3.0)
[2018-11-19] MEDS: VANCOMYCIN 2,200 MG in SODIUM CHLORIDE 0.9% 500 ML IV SCH ×2 (09:27→21:18)
[2018-11-19] MEDS: CLOPIDOGREL 75 MG TABLET PO SCH (09:28)
[2018-11-19] MEDS: INSULIN GLARGINE 100 UNITS/ML, PEN SQ-INSULIN SCH ×2 (09:28→21:12)
[2018-11-19] MEDS: GABAPENTIN 300 MG CAPSULE PO SCH ×3 (09:28→21:12)
[2018-11-19] MEDS: ASPIRIN 81 MG TABLET CHEW PO SCH (09:28)
[2018-11-19] MEDS: INSULIN LISPRO 100 UNITS/ML, PEN SQ-INSULIN SCH ×4 (09:29→21:11)
[2018-11-19] MEDS: ENOXAPARIN 40 MG/0.4 ML SQ SCH (11:59)
[2018-11-19] MEDS ORDERED: ACETAMINOPHEN 325 MG TABLET PO PRN (13:30)
[2018-11-19] MEDS ORDERED: ACETAMINOPHEN 325 MG TABLET ONE (18:40)
[2018-11-19] MEDS: ACETAMINOPHEN 325 MG TABLET PO PRN (19:00)
[2018-11-19] MEDS: ATORVASTATIN 40 MG TABLET PO SCH (21:12)
[2018-11-20] MEDS: AMPICILLIN/SULBACTAM 1,500 MG in SODIUM CHLORIDE 0.9% 50 ML IV SCH ×2 (00:51→05:20)
[2018-11-20 04:49] VITALS: BP 121/82
[2018-11-20 08:11] VITALS: BP 146/90
[2018-11-20] MEDS: ASPIRIN 81 MG TABLET CHEW PO SCH (09:10)
[2018-11-20] MEDS: CLOPIDOGREL 75 MG TABLET PO SCH (09:10)
[2018-11-20] MEDS: GABAPENTIN 300 MG CAPSULE PO SCH ×3 (09:10→21:00)
[2018-11-20] MEDS: INSULIN GLARGINE 100 UNITS/ML, PEN SQ-INSULIN SCH ×2 (09:11→21:01)
[2018-11-20] MEDS: INSULIN LISPRO 100 UNITS/ML, PEN SQ-INSULIN SCH ×4 (09:11→21:00)
[2018-11-20 12:00] VITALS: BP 119/76
[2018-11-20] MEDS: ENOXAPARIN 40 MG/0.4 ML SQ SCH (12:07)
[2018-11-20] MEDS: ERTAPENEM 1 GM in SODIUM CHLORIDE 0.9% 50 ML IV SCH (12:07)
[2018-11-20 14:31] VITALS: BP 109/75
[2018-11-20 16:25] VITALS: BP 133/86
[2018-11-20] MEDS: SENNA/DOCUSATE TABLET PO PRN (17:43)
[2018-11-20 19:55] VITALS: BP 135/94
[2018-11-20] MEDS: ATORVASTATIN 40 MG TABLET PO SCH (21:00)
[2018-11-20] MEDS: ACETAMINOPHEN 325 MG TABLET PO PRN (21:17)
[2018-11-21] VITALS: BP 147/78
[2018-11-21 04:00] VITALS: BP 139/73
[2018-11-21] MEDS: ACETAMINOPHEN 325 MG TABLET PO PRN ×2 (06:12→21:08)
[2018-11-21 07:18] VITALS: BP 135/92
[2018-11-21] MEDS: GABAPENTIN 300 MG CAPSULE PO SCH ×3 (08:49→21:07)
[2018-11-21] MEDS: ASPIRIN 81 MG TABLET CHEW PO SCH (08:49)
[2018-11-21] MEDS: CLOPIDOGREL 75 MG TABLET PO SCH (08:49)
[2018-11-21] MEDS: INSULIN LISPRO 100 UNITS/ML, PEN SQ-INSULIN SCH ×4 (08:50→21:08)
[2018-11-21] MEDS: INSULIN GLARGINE 100 UNITS/ML, PEN SQ-INSULIN SCH ×2 (08:50→21:08)
[2018-11-21] MEDS: SENNA/DOCUSATE TABLET PO PRN (08:55)
[2018-11-21] MEDS: ENOXAPARIN 40 MG/0.4 ML SQ SCH (11:53)
[2018-11-21] MEDS: ERTAPENEM 1 GM in SODIUM CHLORIDE 0.9% 50 ML IV SCH (11:54)
[2018-11-21] MEDS: DIAZEPAM 2 MG TABLET PO PRN ×2 (11:54→21:08)
[2018-11-21 12:00] VITALS: BP 136/93
[2018-11-21 19:57] VITALS: BP 148/97
[2018-11-21] MEDS: ATORVASTATIN 40 MG TABLET PO SCH (21:07)
[2018-11-22 00:20] VITALS: BP 116/76
[2018-11-22 07:00] VITALS: BP 139/86
[2018-11-22] MEDS: GABAPENTIN 300 MG CAPSULE PO SCH ×2 (08:38→15:47)
[2018-11-22] MEDS: INSULIN GLARGINE 100 UNITS/ML, PEN SQ-INSULIN SCH (08:38)
[2018-11-22] MEDS: CLOPIDOGREL 75 MG TABLET PO SCH (08:38)
[2018-11-22] MEDS: ASPIRIN 81 MG TABLET CHEW PO SCH (08:38)
[2018-11-22] MEDS: INSULIN LISPRO 100 UNITS/ML, PEN SQ-INSULIN SCH ×2 (08:39→15:54)
[2018-11-22] MEDS: ERTAPENEM 1 GM in SODIUM CHLORIDE 0.9% 50 ML IV SCH (12:00)
[2018-11-22] MEDS: ENOXAPARIN 40 MG/0.4 ML SQ SCH (12:00)
[2018-11-22 14:10] VITALS: BP 133/97
[2018-11-22] MEDS ORDERED: ERTA1VIA4 IV (15:27)
[2018-11-22] MEDS ORDERED: SENN-177 PO (15:27)
[2018-11-22] MEDS ORDERED: ASPI-515 PO (15:27)
[2018-11-22] MEDS ORDERED: INSU100I13 SQ-INSULIN (15:27)
[2018-11-22] MEDS ORDERED: ATOR40TA78 PO (15:27)
[2018-11-22] MEDS ORDERED: INSU100I11 SQ-INSULIN (15:27)
[2018-11-22] MEDS ORDERED: CLOP75TA PO (15:27)
[2018-11-22] MEDS ORDERED: DIAZ2TAB3 PO (15:27)
== END 2018-11-22 16:30 | DRG 64 ==
LOC: ED 23:46 → EDIP 11-17 01:43 → 5SO 11-17 02:46 → 4WST 11-19 23:53
PROVIDERS: ADMIT Emergency Medicine; ATTEND Emergency Medicine
PROC: 02HV33Z Insertion of Infusion Device into Superior Vena Cava, Percutaneous Approach (ICD-10-PCS; principal; 2018-11-20)
PROC: B548ZZA Ultrasonography of Superior Vena Cava, Guidance (ICD-10-PCS; 2018-11-20)
PROC: B5181ZA Fluoroscopy of Superior Vena Cava using Low Osmolar Contrast, Guidance (ICD-10-PCS; 2018-11-20)
DX: I63.231 Cerebral infarction due to unspecified occlusion or stenosis of right carotid arteries (principal); J96.01 Acute respiratory failure with hypoxia; M86.18 Other acute osteomyelitis, other site; Z68.42 Body mass index [BMI] 45.0-49.9, adult; E11.621 Type 2 diabetes mellitus with foot ulcer; L97.519 Non-pressure chronic ulcer of other part of right foot with unspecified severity; I25.10 Atherosclerotic heart disease of native coronary artery without angina pectoris; G47.33 Obstructive sleep apnea (adult) (pediatric); E66.01 Morbid (severe) obesity due to excess calories; R16.0 Hepatomegaly, not elsewhere classified; E11.42 Type 2 diabetes mellitus with diabetic polyneuropathy; R29.700 NIHSS score 0; I50.9 Heart failure, unspecified; K76.0 Fatty (change of) liver, not elsewhere classified; E11.65 Type 2 diabetes mellitus with hyperglycemia; E11.69 Type 2 diabetes mellitus with other specified complication; I11.0 Hypertensive heart disease with heart failure; I25.2 Old myocardial infarction; Z79.02 Long term (current) use of antithrombotics/antiplatelets; Z95.1 Presence of aortocoronary bypass graft; Z79.82 Long term (current) use of aspirin; Z83.3 Family history of diabetes mellitus; Z89.411 Acquired absence of right great toe; Z91.19 Patient's noncompliance with other medical treatment and regimen; Z79.84 Long term (current) use of oral hypoglycemic drugs
CPT/HCPCS: 36415; 36573; 70450; 70496; 70498; 70551; 71045; 71275; 74177; 80048; 80053; 80061; 80307; 81001; 82010; 82803; 82962; 83036; 83605; 83735; 83880; 84145; 84484; 85025; 85610; 85651; 85730; 86140; 87040; 87070; 87077; 87086; 87147; 87186; 87205; 93005; 96374; 96375; A9585; C8929; G0378; J1335; J1650; J2405; J3370; Q9957; Q9967; 92523-GN; C1751; J0295; J1815; J1940; J2270; J7030; J7040

== ENCOUNTER → 2019-09-10 | Outpatient (CLI) | payer MEDICAID ==
[~2019-09-10] MED LIST changes: +ASPI-515 PO; +ATOR40TA78 PO; +CLOP75TA PO; +DIAZ2TAB3 PO; +ERTA1VIA4 IV; +GLIP10TA13 PO; +GLIP5TAB10 PO; +INSU100I11 SQ-INSULIN; +INSU100I13 SQ-INSULIN; +LINE600T15 PO; -LINE600T33 PO; +SENN-177 PO; +SULF1TAB24 PO
== END | disposition home or self-care (01) ==
LOC: WOUND 08:05
PROVIDERS: ATTEND Internal Medicine
DX: E11.621 Type 2 diabetes mellitus with foot ulcer (principal); L97.512 Non-pressure chronic ulcer of other part of right foot with fat layer exposed; E11.622 Type 2 diabetes mellitus with other skin ulcer; L97.212 Non-pressure chronic ulcer of right calf with fat layer exposed; E11.65 Type 2 diabetes mellitus with hyperglycemia; E11.40 Type 2 diabetes mellitus with diabetic neuropathy, unspecified; G47.30 Sleep apnea, unspecified; E66.01 Morbid (severe) obesity due to excess calories; I25.10 Atherosclerotic heart disease of native coronary artery without angina pectoris; Z86.73 Personal history of transient ischemic attack (TIA), and cerebral infarction without residual deficits; Z79.4 Long term (current) use of insulin; Z89.411 Acquired absence of right great toe
CPT/HCPCS: 11042; 99215

== ENCOUNTER → 2019-09-17 | Outpatient (CLI) | payer MEDICAID | END | disposition home or self-care (01) | LOC: WOUND 08:46 | PROVIDERS: ATTEND Internal Medicine | DX: E11.621 Type 2 diabetes mellitus with foot ulcer (principal); L97.512 Non-pressure chronic ulcer of other part of right foot with fat layer exposed; E11.622 Type 2 diabetes mellitus with other skin ulcer; L97.212 Non-pressure chronic ulcer of right calf with fat layer exposed; E11.65 Type 2 diabetes mellitus with hyperglycemia; E11.40 Type 2 diabetes mellitus with diabetic neuropathy, unspecified; G47.30 Sleep apnea, unspecified; E66.01 Morbid (severe) obesity due to excess calories; I25.10 Atherosclerotic heart disease of native coronary artery without angina pectoris; Z86.73 Personal history of transient ischemic attack (TIA), and cerebral infarction without residual deficits; Z79.4 Long term (current) use of insulin; Z89.411 Acquired absence of right great toe | CPT/HCPCS: 97597 ==

== ENCOUNTER → 2019-09-29 | Outpatient (CLI) | payer MEDICAID | END | disposition home or self-care (01) | LOC: WOUND 08:20 | PROVIDERS: ATTEND Internal Medicine | DX: E11.621 Type 2 diabetes mellitus with foot ulcer (principal); L97.512 Non-pressure chronic ulcer of other part of right foot with fat layer exposed; L84 Corns and callosities; E11.622 Type 2 diabetes mellitus with other skin ulcer; L97.212 Non-pressure chronic ulcer of right calf with fat layer exposed; E11.65 Type 2 diabetes mellitus with hyperglycemia; E11.40 Type 2 diabetes mellitus with diabetic neuropathy, unspecified; G47.30 Sleep apnea, unspecified; E66.01 Morbid (severe) obesity due to excess calories; I25.10 Atherosclerotic heart disease of native coronary artery without angina pectoris; Z86.73 Personal history of transient ischemic attack (TIA), and cerebral infarction without residual deficits; Z79.4 Long term (current) use of insulin; Z89.411 Acquired absence of right great toe; Z68.43 Body mass index [BMI] 50.0-59.9, adult | CPT/HCPCS: 11042 ==

== ENCOUNTER → 2019-10-06 | Outpatient (CLI) | payer MEDICAID | END | disposition home or self-care (01) | LOC: WOUND 08:33 | PROVIDERS: ATTEND Internal Medicine | DX: E11.621 Type 2 diabetes mellitus with foot ulcer (principal); L97.512 Non-pressure chronic ulcer of other part of right foot with fat layer exposed; E11.622 Type 2 diabetes mellitus with other skin ulcer; L97.212 Non-pressure chronic ulcer of right calf with fat layer exposed; L84 Corns and callosities; E11.65 Type 2 diabetes mellitus with hyperglycemia; E11.40 Type 2 diabetes mellitus with diabetic neuropathy, unspecified; G47.30 Sleep apnea, unspecified; E66.01 Morbid (severe) obesity due to excess calories; I25.10 Atherosclerotic heart disease of native coronary artery without angina pectoris; Z86.73 Personal history of transient ischemic attack (TIA), and cerebral infarction without residual deficits; Z79.4 Long term (current) use of insulin; Z89.411 Acquired absence of right great toe; Z68.43 Body mass index [BMI] 50.0-59.9, adult | CPT/HCPCS: 97597 ==

== ENCOUNTER → 2019-10-20 | Outpatient (CLI) | payer MEDICAID | END | disposition home or self-care (01) | LOC: WOUND 08:20 | PROVIDERS: ATTEND Internal Medicine | DX: E11.621 Type 2 diabetes mellitus with foot ulcer (principal); L97.512 Non-pressure chronic ulcer of other part of right foot with fat layer exposed; E11.622 Type 2 diabetes mellitus with other skin ulcer; L97.212 Non-pressure chronic ulcer of right calf with fat layer exposed; L84 Corns and callosities; E11.65 Type 2 diabetes mellitus with hyperglycemia; E11.40 Type 2 diabetes mellitus with diabetic neuropathy, unspecified; G47.30 Sleep apnea, unspecified; E66.01 Morbid (severe) obesity due to excess calories; I25.10 Atherosclerotic heart disease of native coronary artery without angina pectoris; Z86.73 Personal history of transient ischemic attack (TIA), and cerebral infarction without residual deficits; Z79.4 Long term (current) use of insulin; Z89.411 Acquired absence of right great toe; Z68.43 Body mass index [BMI] 50.0-59.9, adult | CPT/HCPCS: 97597 ==

== ENCOUNTER → 2019-10-27 | Outpatient (CLI) | payer MEDICAID | END | disposition home or self-care (01) | LOC: WOUND 08:38 | PROVIDERS: ATTEND Internal Medicine | DX: E11.621 Type 2 diabetes mellitus with foot ulcer (principal); L97.512 Non-pressure chronic ulcer of other part of right foot with fat layer exposed; E11.622 Type 2 diabetes mellitus with other skin ulcer; L97.212 Non-pressure chronic ulcer of right calf with fat layer exposed; L84 Corns and callosities; E11.65 Type 2 diabetes mellitus with hyperglycemia; E11.40 Type 2 diabetes mellitus with diabetic neuropathy, unspecified; G47.30 Sleep apnea, unspecified; E66.01 Morbid (severe) obesity due to excess calories; I25.10 Atherosclerotic heart disease of native coronary artery without angina pectoris; Z86.73 Personal history of transient ischemic attack (TIA), and cerebral infarction without residual deficits; Z79.4 Long term (current) use of insulin; Z89.411 Acquired absence of right great toe; Z68.43 Body mass index [BMI] 50.0-59.9, adult | CPT/HCPCS: 97597 ==

== ENCOUNTER → 2019-11-03 | Outpatient (CLI) | payer MEDICAID | END | disposition home or self-care (01) | LOC: WOUND 07:57 | PROVIDERS: ATTEND Internal Medicine | DX: E11.621 Type 2 diabetes mellitus with foot ulcer (principal); L97.511 Non-pressure chronic ulcer of other part of right foot limited to breakdown of skin; E11.622 Type 2 diabetes mellitus with other skin ulcer; L97.212 Non-pressure chronic ulcer of right calf with fat layer exposed; L84 Corns and callosities; E11.40 Type 2 diabetes mellitus with diabetic neuropathy, unspecified; G47.30 Sleep apnea, unspecified; E66.01 Morbid (severe) obesity due to excess calories; I25.10 Atherosclerotic heart disease of native coronary artery without angina pectoris; Z86.73 Personal history of transient ischemic attack (TIA), and cerebral infarction without residual deficits; Z79.4 Long term (current) use of insulin; Z89.411 Acquired absence of right great toe; Z68.43 Body mass index [BMI] 50.0-59.9, adult; Z95.1 Presence of aortocoronary bypass graft; G47.33 Obstructive sleep apnea (adult) (pediatric) | CPT/HCPCS: 97597 ==

== ENCOUNTER 2019-11-12 08:14 | Outpatient (CLI) | payer MEDICAID | END 2019-11-12 23:59 | disposition home or self-care (01) | LOC: WOUND 08:14 | PROVIDERS: ATTEND Internal Medicine | DX: E11.621 Type 2 diabetes mellitus with foot ulcer (principal); L97.511 Non-pressure chronic ulcer of other part of right foot limited to breakdown of skin; E11.622 Type 2 diabetes mellitus with other skin ulcer; L97.212 Non-pressure chronic ulcer of right calf with fat layer exposed; L84 Corns and callosities; E11.40 Type 2 diabetes mellitus with diabetic neuropathy, unspecified; G47.30 Sleep apnea, unspecified; E66.01 Morbid (severe) obesity due to excess calories; I25.10 Atherosclerotic heart disease of native coronary artery without angina pectoris; Z86.73 Personal history of transient ischemic attack (TIA), and cerebral infarction without residual deficits; Z79.4 Long term (current) use of insulin; Z89.411 Acquired absence of right great toe; Z68.43 Body mass index [BMI] 50.0-59.9, adult; Z95.1 Presence of aortocoronary bypass graft; G47.33 Obstructive sleep apnea (adult) (pediatric) | CPT/HCPCS: 97597 ==

== ENCOUNTER → 2019-11-19 | Outpatient (CLI) | payer MEDICAID | END | disposition home or self-care (01) | LOC: WOUND 08:08 | PROVIDERS: ATTEND Internal Medicine | DX: T87.89 Other complications of amputation stump (principal); E11.621 Type 2 diabetes mellitus with foot ulcer; L97.511 Non-pressure chronic ulcer of other part of right foot limited to breakdown of skin; E11.622 Type 2 diabetes mellitus with other skin ulcer; L97.212 Non-pressure chronic ulcer of right calf with fat layer exposed; L84 Corns and callosities; E11.40 Type 2 diabetes mellitus with diabetic neuropathy, unspecified; G47.30 Sleep apnea, unspecified; E66.01 Morbid (severe) obesity due to excess calories; I25.10 Atherosclerotic heart disease of native coronary artery without angina pectoris; Z86.73 Personal history of transient ischemic attack (TIA), and cerebral infarction without residual deficits; Z79.4 Long term (current) use of insulin; Z89.411 Acquired absence of right great toe; Z68.43 Body mass index [BMI] 50.0-59.9, adult; Z95.1 Presence of aortocoronary bypass graft; Z47.33 Aftercare following explantation of knee joint prosthesis; Y83.5 Amputation of limb(s) as the cause of abnormal reaction of the patient, or of later complication, without mention of misadventure at the time of the procedure | CPT/HCPCS: 97597 ==

== ENCOUNTER 2019-11-26 08:17 | Outpatient (CLI) | payer MEDICAID | END 2019-11-26 23:59 | disposition home or self-care (01) | LOC: WOUND 08:17 | PROVIDERS: ATTEND Internal Medicine | DX: T87.89 Other complications of amputation stump (principal); E11.621 Type 2 diabetes mellitus with foot ulcer; L97.511 Non-pressure chronic ulcer of other part of right foot limited to breakdown of skin; L84 Corns and callosities; E11.40 Type 2 diabetes mellitus with diabetic neuropathy, unspecified; G47.30 Sleep apnea, unspecified; E66.01 Morbid (severe) obesity due to excess calories; I25.10 Atherosclerotic heart disease of native coronary artery without angina pectoris; Z86.73 Personal history of transient ischemic attack (TIA), and cerebral infarction without residual deficits; Z79.4 Long term (current) use of insulin; Z89.411 Acquired absence of right great toe; Z68.43 Body mass index [BMI] 50.0-59.9, adult; Z95.1 Presence of aortocoronary bypass graft; Z47.33 Aftercare following explantation of knee joint prosthesis; Y83.5 Amputation of limb(s) as the cause of abnormal reaction of the patient, or of later complication, without mention of misadventure at the time of the procedure | CPT/HCPCS: 97597 ==

== ENCOUNTER → 2019-12-03 | Outpatient (CLI) | payer MEDICAID | END | disposition home or self-care (01) | LOC: WOUND 08:48 | PROVIDERS: ATTEND Internal Medicine | DX: T87.89 Other complications of amputation stump (principal); E11.621 Type 2 diabetes mellitus with foot ulcer; L97.511 Non-pressure chronic ulcer of other part of right foot limited to breakdown of skin; E11.622 Type 2 diabetes mellitus with other skin ulcer; L97.212 Non-pressure chronic ulcer of right calf with fat layer exposed; L84 Corns and callosities; E11.40 Type 2 diabetes mellitus with diabetic neuropathy, unspecified; E66.01 Morbid (severe) obesity due to excess calories; I25.10 Atherosclerotic heart disease of native coronary artery without angina pectoris; G47.33 Obstructive sleep apnea (adult) (pediatric); I10 Essential (primary) hypertension; E78.5 Hyperlipidemia, unspecified; F15.20 Other stimulant dependence, uncomplicated; Z86.73 Personal history of transient ischemic attack (TIA), and cerebral infarction without residual deficits; Z79.4 Long term (current) use of insulin; Z89.411 Acquired absence of right great toe; Z95.1 Presence of aortocoronary bypass graft; Z95.5 Presence of coronary angioplasty implant and graft; Z47.33 Aftercare following explantation of knee joint prosthesis; Z68.43 Body mass index [BMI] 50.0-59.9, adult; Y83.5 Amputation of limb(s) as the cause of abnormal reaction of the patient, or of later complication, without mention of misadventure at the time of the procedure | CPT/HCPCS: 97597 ==

== ENCOUNTER → 2019-12-10 | Outpatient (CLI) | payer MEDICAID | END | disposition home or self-care (01) | LOC: WOUND 08:49 | PROVIDERS: ATTEND Internal Medicine | DX: T87.89 Other complications of amputation stump (principal); E11.621 Type 2 diabetes mellitus with foot ulcer; L97.511 Non-pressure chronic ulcer of other part of right foot limited to breakdown of skin; E11.622 Type 2 diabetes mellitus with other skin ulcer; L97.212 Non-pressure chronic ulcer of right calf with fat layer exposed; L84 Corns and callosities; E11.40 Type 2 diabetes mellitus with diabetic neuropathy, unspecified; E66.01 Morbid (severe) obesity due to excess calories; I25.10 Atherosclerotic heart disease of native coronary artery without angina pectoris; G47.33 Obstructive sleep apnea (adult) (pediatric); I10 Essential (primary) hypertension; E78.5 Hyperlipidemia, unspecified; F15.20 Other stimulant dependence, uncomplicated; Z86.73 Personal history of transient ischemic attack (TIA), and cerebral infarction without residual deficits; Z79.4 Long term (current) use of insulin; Z89.411 Acquired absence of right great toe; Z95.1 Presence of aortocoronary bypass graft; Z95.5 Presence of coronary angioplasty implant and graft; Z47.33 Aftercare following explantation of knee joint prosthesis; Z68.43 Body mass index [BMI] 50.0-59.9, adult; Y83.5 Amputation of limb(s) as the cause of abnormal reaction of the patient, or of later complication, without mention of misadventure at the time of the procedure | CPT/HCPCS: 97597 ==

== ENCOUNTER → 2019-12-17 | Outpatient (CLI) | payer MEDICAID | END | disposition home or self-care (01) | LOC: WOUND 08:25 | PROVIDERS: ATTEND Internal Medicine | DX: T87.89 Other complications of amputation stump (principal); E11.621 Type 2 diabetes mellitus with foot ulcer; L97.511 Non-pressure chronic ulcer of other part of right foot limited to breakdown of skin; E11.622 Type 2 diabetes mellitus with other skin ulcer; L97.212 Non-pressure chronic ulcer of right calf with fat layer exposed; L84 Corns and callosities; E11.40 Type 2 diabetes mellitus with diabetic neuropathy, unspecified; E66.01 Morbid (severe) obesity due to excess calories; I25.10 Atherosclerotic heart disease of native coronary artery without angina pectoris; G47.33 Obstructive sleep apnea (adult) (pediatric); I10 Essential (primary) hypertension; E78.5 Hyperlipidemia, unspecified; F15.20 Other stimulant dependence, uncomplicated; Z86.73 Personal history of transient ischemic attack (TIA), and cerebral infarction without residual deficits; Z79.4 Long term (current) use of insulin; Z89.411 Acquired absence of right great toe; Z95.1 Presence of aortocoronary bypass graft; Z95.5 Presence of coronary angioplasty implant and graft; Z47.33 Aftercare following explantation of knee joint prosthesis; Z68.43 Body mass index [BMI] 50.0-59.9, adult; Y83.5 Amputation of limb(s) as the cause of abnormal reaction of the patient, or of later complication, without mention of misadventure at the time of the procedure | CPT/HCPCS: 99213 ==